=== PATIENT | male | born 1980 | race Hispanic/Latino ===

== ENCOUNTER 2020-10-04 16:16 | Emergency (ER) | payer SELFPAY ==
[2020-10-04 17:19] VITALS: BP 142/82
--- NOTE | 2020-10-04 19:44 | Emergency Department Report ---
ED N/V/D HPI - General Chief complaint: Abdominal Pain Stated complaint: STOMACH PAIN 2DAYS Source: patient Mode of arrival: Ambulatory Limitations: No Limitations - History of Present Illness Initial comments: Patient is a 39 yo WM with a h/o HTN and CAD s/p [place] who presents to the ED with c/o acute onset persistent intermittent nausea, vomiting and diarrhea with diffuse abdominal discomfort for the last 2 days, worse 24 hours ago. Patient states that he has not eaten anything in the last 12 hours and also that he has not had any diarrhea, nausea and vomiting in the last 12 hours. Patient states that these symptoms occured after he ate left-over foods from a fast food restaurant over 2 days ago. Patient states that the last time he had these symptoms was 24 hours ago. Patient denies dizziness, fever, chills, cough, chest pain, syncope, headache, dyspnea, dysuria, hematemesis or vision changes and cough. MD complaint: nausea, vomiting, diarrhea -: Sudden, hour(s) (24) Description of Vomiting: food contents, watery Description of Diarrhea: water Associated Abdominal Pain: No Location: diffuse Radiation: none Severity: mild Pain Scale: 0 Quality: dull Consistency: intermittent Improves with: none Worsens with: none Context: possible food poisoning Associated Symptoms: denies other symptoms, loss of appetite, nausea/vomiting. denies: myalgias, chest pain, cough, diaphoresis, fever/chills, headaches, malaise, rash, dysuria, shortness of breath, syncope, weakness - Related Data Previous Rx's Medication Instructions Recorded Last Taken Type Dicyclomine [Bentyl] 20 mg PO Q6H PRN #24 tablet 10/04/20 Unknown Rx Famotidine [Pepcid] 20 mg PO BID #30 tablet 10/04/20 Unknown Rx Ondansetron [Zofran Odt] 4 mg PO Q6HR PRN #20 tab.rapdis 10/04/20 Unknown Rx Allergies Allergy/AdvReac Type Severity Reaction Status Date / Time No Known Allergies Allergy Unverified 10/04/20 17:19 ED Review of Systems ROS: Stated complaint: STOMACH PAIN 2DAYS Other details as noted in HPI Constitutional: malaise. denies: chills, fever Eyes: denies: eye pain, eye discharge, vision change ENT: denies: ear pain, throat pain Respiratory: denies: cough, shortness of breath, wheezing Cardiovascular: denies: chest pain, palpitations Endocrine: no symptoms reported Gastrointestinal: abdominal pain (abdominal discomfort), nausea, vomiting, diarrhea Genitourinary: denies: urgency, dysuria Musculoskeletal: denies: back pain, joint swelling, arthralgia Skin: denies: rash, lesions Neurological: denies: headache, weakness, paresthesias Psychiatric: denies: anxiety, depression Hematological/Lymphatic: denies: easy bleeding, easy bruising ED Past Medical Hx - Past Medical History Previous Medical History?: Yes Hx Hypertension: Yes Hx Heart Attack/AMI: Yes - Medications Home Medications: Home Medications Medication Instructions Recorded Confirmed Last Taken Type Dicyclomine [Bentyl] 20 mg PO Q6H PRN #24 tablet 10/04/20 Unknown Rx Famotidine [Pepcid] 20 mg PO BID #30 tablet 10/04/20 Unknown Rx Ondansetron [Zofran Odt] 4 mg PO Q6HR PRN #20 tab.rapdis 10/04/20 Unknown Rx ED Physical Exam - General Limitations: No Limitations General appearance: alert, in no apparent distress - Head Head exam: Present: atraumatic, normocephalic, normal inspection - Eye Eye exam: Present: normal appearance, PERRL, EOMI Pupils: Present: normal accommodation - ENT ENT exam: Present: normal exam, normal orophraynx, mucous membranes moist, TM's normal bilaterally, normal external ear exam - Neck Neck exam: Present: normal inspection, full ROM - Respiratory Respiratory exam: Present: normal lung sounds bilaterally. Absent: respiratory distress, wheezes, rhonchi, chest wall tenderness, accessory muscle use, decreased breath sounds, prolonged expiratory - Cardiovascular Cardiovascular Exam: Present: regular rate, normal rhythm, normal heart sounds. Absent: systolic murmur, diastolic murmur, rubs, gallop - GI/Abdominal GI/Abdominal exam: Present: soft, normal bowel sounds. Absent: tenderness, guarding, rebound, hyperactive bowel sounds, hypoactive bowel sounds, mass - Extremities Exam Extremities exam: Present: normal inspection, full ROM, normal capillary refill - Back Exam Back exam: Present: normal inspection, full ROM. Absent: tenderness, CVA tenderness (R), CVA tenderness (L), paraspinal tenderness, vertebral tenderness - Neurological Exam Neurological exam: Present: alert, oriented X3, CN II-XII intact, normal gait, reflexes normal - Psychiatric Psychiatric exam: Present: normal affect, normal mood - Skin Skin exam: Present: warm, dry, intact, normal color. Absent: rash ED Course Vital Signs 10/04/20 17:16 Temperature 98.0 F Pulse Rate 94 H Respiratory 20 Rate Blood Pressure 142/82 O2 Sat by Pulse 98 Oximetry ED Medical Decision Making - Medical Decision Making This is a 39 yo WM with a h/o HTN and CAD s/p [place] who presents to the ED with c/o acute onset persistent intermittent nausea, vomiting and diarrhea with diffuse abdominal discomfort for the last 2 days, worse 24 hours ago. Patient states that he has not eaten anything in the last 12 hours and also that he has not had any diarrhea, nausea and vomiting in the last 12 hours. Patient states that these symptoms occured after he ate left-over foods from a fast food restaurant over 2 days ago. Patient states that the last time he had these symptoms was 24 hours ago. In the ED, patient is alert and oriented x 3 and is in no acute distress with stabel vital signs. Patient has not had any symptom sin 12 hours. Patient was discharged home on medications and advised to maintain a clear liquid diet for 12-24 hours, take medications and drink plenty of fluids. Patient was also advised to follow up with his primary care physician in 3-5 days for reevaluation or return to the ED immediately if symptoms get worse. - Differential Diagnosis Gastroenteritis; GERD; Dehydration; Gastritis Critical care attestation.: If time is entered above; I have spent that time in minutes in the direct care of this critically ill patient, excluding procedure time. ED Disposition Clinical Impression: Viral gastroenteritis, Nausea, vomiting and diarrhea Disposition: - TO HOME OR SELFCARE Is pt being admited?: No Does the pt Need Aspirin: No Condition: Stable Instructions: Viral Gastroenteritis, Adult, [id number], Nausea and Vomiting, Adult, [id number], Diarrhea, Adult, [id number] Additional Instructions: Maintain a clear liquid diet for the next 12-24 hours. Take medications with food, drink plenty of fluids and follow up with your Primary Care Physician in 3-5 days for reevaluation. Prescriptions: Dicyclomine [Bentyl] 20 mg PO Q6H PRN #24 tablet PRN Reason: Abdominal pain Famotidine [Pepcid] 20 mg PO BID #30 tablet Ondansetron [Zofran Odt] 4 mg PO Q6HR PRN #20 tab.rapdis PRN Reason: Nausea Referrals: [facility] [Outside] - 3-5 Days Forms: Work/School Release Form(ED) Time of Disposition: 19:42 Print Language: CUBAN
== END 2020-10-04 20:00 | disposition home or self-care (01) ==
LOC: ED 16:16
DX: A08.4 Viral intestinal infection, unspecified (principal); R19.7 Diarrhea, unspecified; R11.2 Nausea with vomiting, unspecified; I10 Essential (primary) hypertension; I25.2 Old myocardial infarction; Z79.899 Other long term (current) drug therapy
CPT/HCPCS: 99281

== ENCOUNTER 2020-10-08 18:22 | Emergency (ER) | payer SELFPAY ==
[2020-10-08 18:31] VITALS: BP 157/83
[2020-10-08] MEDS ORDERED: GABAPENTIN 400 MG CAP PO ONE (22:27)
[2020-10-08] MEDS ORDERED: predniSONE 20 MG TAB PO ONE (22:27)
[2020-10-08] MEDS ORDERED: IBUPROFEN 600 MG TAB PO ONE (22:27)
--- NOTE | 2020-10-09 00:13 | Emergency Department Report ---
ED Extremity Problem HPI - General Chief complaint: Neuro Symptoms/Deficit Stated complaint: NUMBNESS/TINGLING/PAIN Source: patient Mode of arrival: Ambulatory Limitations: No Limitations - History of Present Illness Initial comments: Patient is a 39-year-old white male with a history of hypertension and coronary artery disease status post MT who presents to the ED with complaint of acute onset persistent bilateral wrist and hand pain with tingling and numbness intermittently for the last 2 days. Patient states that at rest the pain has been persistent and constant such that he has not been able to sleep. 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 Patient denies fall, traumatic injury, nausea, vomiting, chest pain, shortness of breath, neck pain, back pain, cough, fever, chills, change in vision, headache or back pain. MD Complaint: extremity pain (bilateral hand and wrist pain with tingling and numbness) -: Sudden, days(s) (2) Location: upper extremity (bilateral wrist and hand pain with tingling) History of Same: No -: Yes arthralgia, No fever, No associated dyspnea, No associated chest pain Radiation: distal Severity scale (0 -10): 7 Quality: aching, sharp Consistency: constant Improves with: nothing Worsens with: weight bearing, exertion, palpation Associated Symptoms: denies other symptoms, arthralgias. denies: chest pain, shortness of breath, fever, myalgias, rash - Related Data Previous Rx's Medication Instructions Recorded Last Taken Type Dicyclomine [Bentyl] 20 mg PO Q6H PRN #24 tablet 10/04/20 Unknown Rx Famotidine [Pepcid] 20 mg PO BID #30 tablet 10/04/20 Unknown Rx Ondansetron [Zofran Odt] 4 mg PO Q6HR PRN #20 tab.rapdis 10/04/20 Unknown Rx Gabapentin 300 mg PO BID #60 cap 10/09/20 Unknown Rx Naproxen 500 mg PO Q12H PRN #30 tablet 10/09/20 Unknown Rx predniSONE [Deltasone] 60 mg PO QDAY #15 tab 10/09/20 Unknown Rx traMADoL [Ultram] 50 mg PO Q6HR PRN #12 tablet 10/09/20 Unknown Rx Allergies Allergy/AdvReac Type Severity Reaction Status Date / Time No Known Allergies Allergy Verified 10/08/20 18:27 ED Review of Systems ROS: Stated complaint: NUMBNESS/TINGLING/PAIN Other details as noted in HPI Constitutional: denies: chills, fever Eyes: denies: eye pain, eye discharge, vision change ENT: denies: ear pain, throat pain Respiratory: denies: cough, shortness of breath, wheezing Cardiovascular: denies: chest pain, palpitations Endocrine: no symptoms reported Gastrointestinal: denies: abdominal pain, nausea, diarrhea Genitourinary: denies: urgency, dysuria Musculoskeletal: arthralgia (Bilateral wrist and hand pain). denies: back pain, joint swelling, myalgia, other Skin: denies: rash, lesions, change in color, change in hair/nails Neurological: denies: headache, weakness, paresthesias Psychiatric: denies: anxiety, depression Hematological/Lymphatic: denies: easy bleeding, easy bruising ED Past Medical Hx - Past Medical History Hx Hypertension: Yes Hx Heart Attack/AMI: Yes - Medications Home Medications: Home Medications Medication Instructions Recorded Confirmed Last Taken Type Dicyclomine [Bentyl] 20 mg PO Q6H PRN #24 tablet 10/04/20 Unknown Rx Famotidine [Pepcid] 20 mg PO BID #30 tablet 10/04/20 Unknown Rx Ondansetron [Zofran Odt] 4 mg PO Q6HR PRN #20 tab.rapdis 10/04/20 Unknown Rx Gabapentin 300 mg PO BID #60 cap 10/09/20 Unknown Rx Naproxen 500 mg PO Q12H PRN #30 tablet 10/09/20 Unknown Rx predniSONE [Deltasone] 60 mg PO QDAY #15 tab 10/09/20 Unknown Rx traMADoL [Ultram] 50 mg PO Q6HR PRN #12 tablet 10/09/20 Unknown Rx ED Physical Exam - General Limitations: No Limitations General appearance: alert, in no apparent distress - Head Head exam: Present: atraumatic, normocephalic, normal inspection - Eye Eye exam: Present: normal appearance, PERRL, EOMI Pupils: Present: normal accommodation - ENT ENT exam: Present: normal exam, normal orophraynx, mucous membranes moist, TM's normal bilaterally, normal external ear exam - Neck Neck exam: Present: normal inspection, full ROM - Respiratory Respiratory exam: Present: normal lung sounds bilaterally. Absent: respiratory distress, wheezes, rales, rhonchi, chest wall tenderness, accessory muscle use - Cardiovascular Cardiovascular Exam: Present: normal rhythm, tachycardia, normal heart sounds. Absent: systolic murmur, diastolic murmur, rubs, gallop - GI/Abdominal GI/Abdominal exam: Present: soft, normal bowel sounds. Absent: tenderness, guarding, rebound, hyperactive bowel sounds, hypoactive bowel sounds, organomegaly, mass, bruit - Extremities Exam Extremities exam: Present: normal inspection, full ROM, tenderness (Palpable bilateral wrist joint tenderness with positive Tinel's test for Carpal tunnel syndrome), normal capillary refill. Absent: pedal edema, joint swelling, calf tenderness - Back Exam Back exam: Present: normal inspection, full ROM. Absent: tenderness, CVA tenderness (R), CVA tenderness (L), muscle spasm, paraspinal tenderness, vertebral tenderness - Neurological Exam Neurological exam: Present: alert, oriented X3, CN II-XII intact, normal gait, reflexes normal - Psychiatric Psychiatric exam: Present: normal affect, normal mood - Skin Skin exam: Present: warm, dry, intact, normal color. Absent: rash ED Course Vital Signs 10/08/20 18:26 Temperature 97.5 F L Pulse Rate 110 H Respiratory 18 Rate Blood Pressure 157/83 O2 Sat by Pulse 98 Oximetry ED Medical Decision Making - Medical Decision Making This is a 39-year-old white male with a history of hypertension and coronary artery disease status post MT who presents to the ED with complaint of acute onset persistent bilateral wrist and hand pain with tingling and numbness intermittently for the last 2 days. Patient states that at rest the pain has been persistent and constant such that he has not been able to sleep. 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 In the ED, patient is alert and oriented x3 and is not in distress but tachycardic and anxious in triage. Patient was treated for pain in the ED and on reevaluation, patient's pain is well controlled with medications. Patient was discharged home on medications and advised to follow-up with his primary care physician in 5 to 7 days for reevaluation. On reevaluation, patient's tachycardia also resolved with treatment in the ED. Patient was advised to return to the ED immediately if symptoms get worse. - Differential Diagnosis Carpal tunnel syndrome; Tendonitis; Neuropathy; Muscle strain Critical care attestation.: If time is entered above; I have spent that time in minutes in the direct care of this critically ill patient, excluding procedure time. ED Disposition Clinical Impression: Carpal tunnel syndrome, bilateral, Tendonitis of both wrists Disposition: TO HOME OR SELFCARE Is pt being admited?: No Does the pt Need Aspirin: No Condition: Stable Instructions: Carpal Tunnel Syndrome, [id number], Tendinitis, [id number] Additional Instructions: Take medication with food, drink plenty of fluids and follow-up with your primary care physician in 5 to 7 days for reevaluation. Return to the ED immediately if symptoms get worse. Prescriptions: predniSONE [Deltasone] 60 mg PO QDAY #15 tab Gabapentin 300 mg PO BID #60 cap Naproxen 500 mg PO Q12H PRN #30 tablet PRN Reason: Pain , Severe (7-10) traMADoL [Ultram] 50 mg PO Q6HR PRN #12 tablet PRN Reason: Pain Referrals: [facility] [Provider Group] - 7-10 days Forms: Work/School Release Form(ED) Time of Disposition: 00:13 Print Language: AMHARIC
== END 2020-10-09 00:41 | disposition home or self-care (01) ==
LOC: ED 18:22
DX: G56.03 Carpal tunnel syndrome, bilateral upper limbs (principal); M77.21 Periarthritis, right wrist; M77.22 Periarthritis, left wrist; I10 Essential (primary) hypertension; I25.2 Old myocardial infarction; Z79.899 Other long term (current) drug therapy
CPT/HCPCS: 99282; J7512